=== PATIENT | male | born 1975 | race Caucasian/White ===

== ENCOUNTER 2016-08-13 00:47 | Emergency (ER) | payer OTHER ==
[~2016-08-13] VITALS: Ht 162.6 cm; Wt 106.3 kg
[2016-08-13 01:46] VITALS: BP 121/83
== END 2016-08-13 01:47 | disposition home or self-care (01) ==
LOC: EME 00:47
PROC: 0HQGXZZ Repair Left Hand Skin, External Approach (ICD-10-PCS; principal; 2016-08-13)
PROC: 3E0234Z Introduction of Serum, Toxoid and Vaccine into Muscle, Percutaneous Approach (ICD-10-PCS; principal; 2016-08-13)
DX: S61.211A Laceration without foreign body of left index finger without damage to nail, initial encounter (principal); S61.213A Laceration without foreign body of left middle finger without damage to nail, initial encounter; W27.8XXA Contact with other nonpowered hand tool, initial encounter; F10.99 Alcohol use, unspecified with unspecified alcohol-induced disorder; Z23 Encounter for immunization
CPT/HCPCS: 99281; 99283; S0020

== ENCOUNTER 2017-03-30 01:46 | Emergency (ER) | payer OTHER ==
[~2017-03-30] VITALS: Ht 162.6 cm; Wt 106.4 kg
[2017-03-30] MEDS ORDERED: AUGMENTIN875 MG PO (04:37)
[2017-03-30 04:46] VITALS: BP 142/95
== END 2017-03-30 04:47 | disposition home or self-care (01) ==
LOC: EME 01:46 → EXP 01:46
PROC: 0CQ1XZZ Repair Lower Lip, External Approach (ICD-10-PCS; principal; 2017-03-30)
DX: S01.511A Laceration without foreign body of lip, initial encounter (principal); W54.0XXA Bitten by dog, initial encounter
CPT/HCPCS: 99281; 99284